=== PATIENT | male | born 1955 | race Caucasian/White ===

== ENCOUNTER → 2023-11-22 | Outpatient (CLI) | payer MEDICARE, SELFPAY ==
[2023-11-22 17:43] LABS: Absolute Lymphocyte Count 2.27 X10^3/uL (0.83-4.51); Absolute Neutrophil Count 4.3 X10^3/uL (2.0-7.7); Basophil# 0.07 X10^3/uL; Basophil% 0.9 % (0-1); Eosinophil# 0.16 X10^3/uL; Eosinophils% 2.1 % (0-5); Hematocrit 44.4 % (40-54); Hemoglobin 14.1 g/dL (13.0-16.5); Lymphocyte # 2.27 X10^3/ul (0.83-4.51); Lymphocyte % 30.4 % (19-41); Mean Corp Hgb Conc 31.8 g/dL (32-36); Mean Corpuscular Hgb 27.2 pg (27.0-32.0); Mean Corpuscular Volume 85.5 fL (80-94); Mean Platelet Vol. 10.5 fl (6.2-12.0); Monocyte# 0.65 X10^3/uL; Monocyte% 8.7 % (0-10); NRBC Flagged by Analyzer 0 % (0-5); Neutrophil % 57.6 % (47-70); Platelet Count 238 K/mm3 (150-450); RBC Distribution Width CV 14.3 % (11.6-14.6); RBC Distribution Width SD 44.9 fl (35.1-43.9); Red Blood Count 5.19 M/mm3 (4.6-6.2); White Blood Count 7.5 K/mm3 (4.4-11.0)
[2023-11-22 17:55] LABS: ALB/GLOB Ratio 1.2 RATIO (0.9-2.4); AST(SGOT) 11 U/L (15-37); Alanine Aminotransfer ALT/SGPT 20 U/L (16-61); Albumin, Serum 4.2 g/dL (3.2-5.0); Alkaline Phosphatase 60 U/L (45-117); Anion Gap 6 (5-15); BUN 18 mg/dL (7-18); BUN/Creat Ratio 16.5 RATIO (10-20); CRP < 2.90 mg/L (0.0-3.0); Calcium,Total 9.4 mg/dL (8.5-10.1); Chloride 100 mmol/L (98-107); Creatinine, Serum 1.09 mg/dL (0.70-1.30); EST Glomerular Filtration Rate 71 mL/min (>60); Est Glom Filt Rate - Afr Amer 86 mL/min (>60); Globulin 3.5 g/dL (2.2-4.2); Glucose 80 mg/dL (74-106); Potassium 4.2 mmol/L (3.5-5.1); Protein, Total 7.7 g/dL (6.4-8.2); Rheumatoid Factor < 10.0 IU/mL (<15); Sodium Level 136 mmol/L (136-145)
[2023-11-22 17:59] LABS: Erythrocyte Sedimentation Rate 3 mm/hr (0-20)
[2023-11-22 18:37] LABS: Hepatitis B Surface Antibody Non-Reactive; Hepatitis B Surface Antigen Non-Reactive (Nonreactive); Hepatitis C Antibody Non-Reactive (Nonreactive)
[2023-11-24 12:09] LABS: ANTINUCLEAR ANTIBODIES DIRECT Negative (Negative)
[2023-11-24 13:08] LABS: CCP IgG Antibodies 6 units (0-19)
== END | disposition home or self-care (01) ==
LOC: MTLAB 14:08
PROVIDERS: Referring Provider Internal Medicine Rheumatology; Visit Provider Internal Medicine Rheumatology
DX: M06.4 Inflammatory polyarthropathy (principal)
CPT/HCPCS: 36415; 80053; 85025; 85652; 86038; 86140; 86200; 86431; 86706; 86803; 87340

== ENCOUNTER → 2023-11-29 | Outpatient (CLI) | payer MEDICARE, SELFPAY ==
[2023-11-29 17:52] LABS: Pathologist Comment May follow
[2023-11-29 18:37] LABS: Synovial Fld Mononuclear WBC # 0.264 10^3/ul; Synovial Fld Polynuclear WBC # 0.023 10^3/uL
[2023-11-29 18:41] LABS: AUTO B FLUID DILUENT BKGD CT WBC <0.1 RBC <0.01 (W<.1,R<.01); Appearance /Synovial Fluid Clear (CLEAR); Color / Synovial Fluid Yellow (Pale Yellow); RBC /Synovial Fluid 0.002 10^6/uL (0); Source / Synovial Fluid R KNEE; Source- Body Fluid SYNOVIAL
[2023-11-29 19:03] LABS: CRYSTALS, BODY FLUID See PATH REV
[2023-11-29 19:08] LABS: Body Fluid QC Type(s) BF4Q,BF5Q
[2023-11-30 10:47] LABS: Lymph 34 %; Monocyte /Synovial Fluid 26 %; Neutrophil 5 % (0-25); Other Cell /Synovial Fluid 35 %
[2023-11-30 11:55] LABS: Pathologist Review Reviewed
== END | disposition home or self-care (01) ==
PROVIDERS: Referring Provider Internal Medicine Rheumatology; Visit Provider Internal Medicine Rheumatology
DX: M06.4 Inflammatory polyarthropathy (principal)
CPT/HCPCS: 87070; 87075; 87205; 89050; 89051; 89060